=== PATIENT | female | born 1945 | race Caucasian/White ===

== ENCOUNTER 2017-03-25 11:20 | Outpatient (CLI) ==
[2015-06-06 17:48] VITALS: BMI 29.2
[2017-03-25 11:40] LABS: BASOPHILS # (AUTO) 0.1 K/uL (0-0.2); BASOPHILS % (AUTO) 0.6 % (0.0-3.0); EOSINOPHILS # (AUTO) 0.1 K/ul (0.0-0.7); EOSINOPHILS % (AUTO) 1.2 % (0.0-7.0); HEMATOCRIT 42.6 % (37.0-47.0); HEMOGLOBIN 14.2 g/dl (12.0-16.0); IMMATURE GRANULOCYTE % (AUTO) 0.2 % (0.0-5.0); LYMPHOCYTES # (AUTO) 2.2 K/uL (0.60-3.4); LYMPHOCYTES % (AUTO) 26.4 (10.0-50.0); MEAN CORPUSCULAR HEMOGLOBIN 28.9 pg (27.0-31.0); MEAN CORPUSCULAR HGB CONC 33.3 (31.8-35.4); MEAN CORPUSCULAR VOLUME 86.8 fl (81.0-99.0); MONOCYTES # (AUTO) 0.2 K/uL (0.4-2.0); MONOCYTES % (AUTO) 2.6 (0-10); NEUTROPHILS # (AUTO) 5.8 K/ul (2.0-6.9); PLATELET COUNT 235 10^3/uL (140-440); RED BLOOD COUNT 4.91 10^6/ul (4.20-5.40); WHITE BLOOD COUNT 8.44 K/ul (4.6-10.2)
[2017-03-25 12:00] LABS: ALBUMIN 4.4 g/dL (3.4-5.0); ALBUMIN/GLOBULIN RATIO 1.29; ANION GAP 14.7; BILIRUBIN,TOTAL 0.63 mg/dL (0.00-1.20); CHOL/HDL RATIO 3.5 (4.5-5.5); CREATININE 0.8 mg/dL (0.60-1.30); POTASSIUM 3.7 mmol/L (3.5-5.10); TOTAL PROTEIN 7.8 g/dL (5.8-8.1)
== END 2017-03-25 11:21 | disposition home or self-care (01) ==
LOC: LAB 11:20
PROVIDERS: ATTEND Psychiatry & Neurology Psychiatry
DX: F33.2 Major depressive disorder, recurrent severe without psychotic features (principal); F01.50 Vascular dementia, unspecified severity, without behavioral disturbance, psychotic disturbance, mood disturbance, and anxiety; Z79.899 Other long term (current) drug therapy
CPT/HCPCS: 36415; 80053; 80061; 85025; 90792

== ENCOUNTER → 2017-04-15 | Outpatient (RCR) ==
[2015-06-06 17:48] VITALS: BMI 29.2
== END ==
LOC: NEWBEG 03-25 08:58
PROVIDERS: ATTEND Psychiatry & Neurology Psychiatry
DX: F33.2 Major depressive disorder, recurrent severe without psychotic features (principal); F01.50 Vascular dementia, unspecified severity, without behavioral disturbance, psychotic disturbance, mood disturbance, and anxiety
CPT/HCPCS: 90792; 90853; 99214

== ENCOUNTER → 2017-05-16 | Outpatient (RCR) ==
[2015-06-06 17:48] VITALS: BMI 29.2
== END ==
LOC: NEWBEG 04-18 07:00
PROVIDERS: ATTEND Psychiatry & Neurology Psychiatry
DX: F33.2 Major depressive disorder, recurrent severe without psychotic features (principal); F01.50 Vascular dementia, unspecified severity, without behavioral disturbance, psychotic disturbance, mood disturbance, and anxiety; F60.7 Dependent personality disorder
CPT/HCPCS: 90853; 99214

== ENCOUNTER 2017-06-15 10:00 | Outpatient (RCR) ==
[2015-06-06 17:48] VITALS: BMI 29.2
== END 2017-06-16 ==
LOC: NEWBEG 10:00
PROVIDERS: ATTEND Psychiatry & Neurology Psychiatry
DX: F33.2 Major depressive disorder, recurrent severe without psychotic features (principal); F01.50 Vascular dementia, unspecified severity, without behavioral disturbance, psychotic disturbance, mood disturbance, and anxiety; F60.7 Dependent personality disorder
CPT/HCPCS: 90832; 90853; 99214

== ENCOUNTER 2017-06-17 09:09 | Outpatient (RCR) ==
[2015-06-06 17:48] VITALS: BMI 29.2
== END 2017-07-16 ==
LOC: NEWBEG 09:09
PROVIDERS: ATTEND Psychiatry & Neurology Psychiatry
DX: F33.2 Major depressive disorder, recurrent severe without psychotic features (principal); F01.50 Vascular dementia, unspecified severity, without behavioral disturbance, psychotic disturbance, mood disturbance, and anxiety; F60.7 Dependent personality disorder

== ENCOUNTER 2017-12-27 10:24 | Outpatient (CLI) ==
[2015-06-06 17:48] VITALS: BMI 29.2
--- NOTE | 2017-12-27 11:51 | US ---
EXAM: Thyroid ultrasound History: Hypothyroid Technique: Multiple sonographic images through the thyroid gland were obtained. Color duplex Dopple r was used to interrogate vascular flow. Findings: The right lobe of the thyroid measures 4.8 cm x 1.9 cm x 1.8 cm and demonstrates multiple nodules wit h the largest being complex measuring 1.8 cm. The thyroid isthmus measures 0.4 cm in thickness. The left lobe of the thyroid measures 3.5 cm x 1.7 cm x 1.8 cm demonstrates a 1.2 cm complex nodule. The thyroid gland is not hypervascular. The thyroid gland is diffusely heterogeneous. No extrathyro idal masses are identified. Impression: Heterogeneous thyroid gland with dominant nodules as detailed above.
--- NOTE | 2017-12-28 11:40 | MAMMO ---
EXAM: Bilateral digital screening mammogram (2-D and 3-D) History: Screening Comparison: Bilateral mammogram 02/05/2014 Findings: MLO and CC views of bilateral breasts demonstrate scattered fibroglandular breast parenchy ma. CAD was reviewed by the radiologist. Tomosynthesis was performed. There are no dominant masses , no suspicious microcalcifications and no architectural distortions. Impression: Stable negative mammogram. Recommend followup routine screening mammography in 1 year. BIRADS 1
== END 2017-12-27 10:25 | disposition home or self-care (01) ==
LOC: RAD 10:24
PROVIDERS: ATTEND Physician Assistant
DX: Z12.31 Encounter for screening mammogram for malignant neoplasm of breast (principal); E03.9 Hypothyroidism, unspecified
CPT/HCPCS: 77067

== ENCOUNTER 2018-05-02 10:03 | Outpatient (CLI) ==
[2015-06-06 17:48] VITALS: BMI 29.2
--- NOTE | 2018-05-02 11:26 | US ---
EXAM: Left lower extremity venous Doppler History: Left lower extremity pain. Technique: Multiple sonographic images through the left lower extremity were obtained. Color duplex Doppler was used to interrogate vascular flow. Findings: The left common femoral, greater saphenous, profunda, superficial femoral, popliteal, irish sneha, posterior tibial and anterior tibial veins demonstrate spontaneous flow with normal compression and normal augmentation. Impression: No sonographic evidence for deep venous thrombosis.
== END 2018-05-02 10:04 | disposition home or self-care (01) ==
LOC: RAD 10:03
PROVIDERS: ATTEND Physician Assistant
DX: M79.605 Pain in left leg (principal); M79.604 Pain in right leg

== ENCOUNTER 2018-08-21 11:31 | Emergency (ER) ==
[2018-08-21 11:40] VITALS: BP 112/77; TEMP 99.2; BMI 31.9
[2018-08-21] MEDS ORDERED: TORADOL IM STA (11:58)
--- NOTE | 2018-08-21 12:33 | DI ---
EXAM: LEFT RIBS HISTORY: Rib pain after fall FINDINGS: Left ribs three-view. No displaced rib fracture is identified. No bony destruction, pneum othorax or soft tissue finding. IMPRESSION: No displaced rib fracture seen.
--- NOTE | 2018-08-21 12:52 | ED.PDOC ---
General ED Provider: Dr. MAO GARCIA MD Chief Complaint: Chest Wall Injury/Pain Stated Complaint: fell Time Seen by Physician: 12:15 Mode of Arrival: Walk-In Information Source: Patient Exam Limitations: No limitations Primary Care Provider: LEONARD HILL Nursing and Triage Documentation Reviewed and Agree: Yes Does patient meet sepsis criteria?: No If yes, has appropriate treatment been initiated?: Yes System Inflammatory Response Syndrome: Not Applicable Sepsis Protocol: For patient's 13 years and over: Temp is 96.8 and below OR 101 and greater Pulse >90 BPM Resp >20/minute Acutely Altered Mental Status Are patient's symptoms suggestive of a new infection, such as: -Pneumonia -Skin, Soft Tissue -Endocarditis -UTI -Bone, Joint Infection -Implantable Device -Acute Abdominal Infection -Wound Infection -Meningitis -Blood Stream Catheter Infection -Unknown Trauma/Injury Complaint Exam - Truncal Trauma Complaint/Exam Location of Pain: Reports: Left, Chest Symptoms Are: Still present Onset of Pain: Reports: Post accident Initial Severity: Mild Current Severity: Mild Mechanism: Reports: Blunt trauma, Fall Aggravating: Reports: Movement Alleviating: Reports: Rest Related Surgical History: Reports: None Immobilization Removed Post Exam: No Vertebral Tenderness Present: No Vertebral Deformity Present: No Trachial Deviation Present: No JVD Present: No Crepitus Present: No Diminished Breath Sounds: No Muffled Heart Sounds Present: No Paradoxical Chest Wall Movement Present: No Abdominal Guarding Present: No Abdominal Rigidity Present: No Referred Shoulder Pain (Kehr's Sign) Present: No Skin Findings: Present: Normal findings Differential Diagnoses: Chest Wall Contusion Review of Systems - Review Of Systems Constitutional: Reports: No symptoms Eyes: Reports: No symptoms Ears, Nose, Mouth, Throat: Reports: No symptoms Respiratory: Reports: No symptoms Cardiac: Reports: No symptoms GI: Reports: No symptoms : Reports: No symptoms Musculoskeletal: Reports: Muscle pain Skin: Reports: No symptoms Neurological: Reports: No symptoms Endocrine: Reports: No symptoms Hematologic/Lymphatic: Reports: No symptoms All Other Systems: Reviewed and Negative Past Medical History - Past Medical History Previously Healthy: No Endocrine: Reports: None Cardiovascular: Reports: None Respiratory: Reports: COPD Hematological: Reports: None Gastrointestinal: Reports: Diverticulitis Genitourinary: Reports: None Neuro/Psych: Reports: None Musculoskeletal: Reports: Other (mild tender l lower rib) Cancer: Reports: None Last Menstrual Period: n/a - Surgical History General Surgical History: Reports: Unknown - Family History Family History: Reports: Unknown - Social History Smoking Status: Never smoker Hx Substance Use: No Alcohol Screening: None Physical Exam - Physical Exam Appearance: Well-appearing, No pain distress, Well-nourished, Thin Ill-appearing: None Pain Distress: Mild Eyes: SILVERIO, EOMI, Conjunctiva clear ENT: Ears normal, Nose normal, Oropharynx normal Respiratory: Airway patent, Breath sounds clear, Breath sounds equal, Respirations nonlabored Cardiovascular: RRR, Pulses normal, No rub, No murmur GI/: Soft, Nontender, No masses, Bowel sounds normal, No Organomegaly Musculoskeletal: Normal strength, ROM intact, No edema, No calf tenderness Skin: Warm, Dry, Normal color Neurological: Sensation intact, Motor intact, Reflexes intact, Cranial nerves intact, Alert, Oriented Psychiatric: Affect appropriate, Mood appropriate Critical Care Note - Critical Care Note Total Time (mins): 0 Course - Course Orders, Labs, Meds: Orders Category Date Time Status Ketorolac Tromethamine [Toradol] MEDS 08/21/18 11:58 Discontinued 60 mg IM ONCE STA RIBS, UNILATERAL LEFT Stat RADS 08/21/18 11:57 Completed Medications Discontinued Medications Generic Name Dose Route Start Last Admin Trade Name Freq PRN Reason Stop Dose Admin Ketorolac Tromethamine 60 mg 08/21/18 11:58 08/21/18 12:05 Toradol IM 08/21/18 11:59 60 mg ONCE STA Administration Vital Signs: Temp Pulse Resp BP Pulse Ox 08/21/18 11:36 99.2 F 92 H 20 112/77 94 L Departure - Departure Time of Disposition: 01:00 (Rib Xray neg) Disposition: HOME SELF-CARE Discharge Problem: Contusion, chest wall Instructions: Pulmonary Contusion (ED) Condition: Stable Pt referred to PMD for follow-up: Yes IPMP verified?: No Allergies/Adverse Reactions: Allergies No Known Allergies Allergy (Verified 08/21/18 11:41) Home Medications: Ambulatory Orders Alprazolam 1 mg PO BEDTIME 08/21/18 Chlorthalidone 25 mg PO DAILY 08/21/18 Donepezil HCl 10 mg PO DAILY 08/21/18 Levothyroxine Sodium 50 mcg PO DAILY 08/21/18 Quetiapine Fumarate 25 mg PO BEDTIME 08/21/18 Sertraline HCl 100 mg PO DAILY 08/21/18 Transfer Form Completed: No Disposition Discussed With: Patient
== END 2018-08-21 13:10 | disposition home or self-care (01) ==
LOC: ED 11:31
DX: S20.212A Contusion of left front wall of thorax, initial encounter (principal); W19.XXXA Unspecified fall, initial encounter
CPT/HCPCS: 96372; 99283

== ENCOUNTER 2019-02-09 14:44 | Outpatient (CLI) ==
[2019-02-09 15:13] VITALS: BMI 35.1
== END 2019-02-09 14:49 | disposition critical access hospital (66) ==
LOC: AMBL 14:44
PROVIDERS: ATTEND Emergency Medicine
DX: R41.82 Altered mental status, unspecified (principal)

== ENCOUNTER 2019-02-09 14:55 | Emergency (ER) ==
--- NOTE | 2019-02-09 15:11 | ED.PDOC ---
General ED Provider: Dr. GENNA SCHULZ Chief Complaint: Fall Stated Complaint: 73 y old female apparently ETOH intoxicated.Noticed by a neighbour who was mowing grass as she went down to the ground and appeared under influence.Initial neurological evaluation is negative.[place] Nexys cruteria for neck.=/spine injury are negative,Also patient moves her neck spontaneously without any impediment.No NV.Abdomen soft and pelvis nontender with full rom on al joints of lower and upper extremities,Her verbalization is now incoherent,Ouoils are equal equally PEERLA, Time Seen by Physician: 15:15 Mode of Arrival: Ambulance Information Source: EMT Exam Limitations: Intoxication Nursing and Triage Documentation Reviewed and Agree: Yes Does patient meet sepsis criteria?: No System Inflammatory Response Syndrome: Not Applicable Sepsis Protocol: For patient's 13 years and over: Temp is 96.8 and below OR 101 and greater Pulse >90 BPM Resp >20/minute Acutely Altered Mental Status Are patient's symptoms suggestive of a new infection, such as: -Pneumonia -Skin, Soft Tissue -Endocarditis -UTI -Bone, Joint Infection -Implantable Device -Acute Abdominal Infection -Wound Infection -Meningitis -Blood Stream Catheter Infection -Unknown Cardiovascular Complaint Exam - Hypertension Complaint/Exam Onset/Duration: today Symptoms Are: Still present Timing: Constant Reported B/P Prior to Arrival: 120/90 Aggravating: Reports: None Alleviating: Reports: None Associated Signs and Symptoms: Reports: Dizziness Related Surgical History: Reports: None Cardiac Risk Factors: Reports: None Recent Change in Medications: No A/V [place]: No Papilledema Present: No JVD Present: No Carotid Bruit Present: No Femoral Pulses Bounding: No Differential Diagnoses: Drug Ingestion, Drug Withdrawal, Endocrine Disorder, Migraine Quality Indicator For Non-Traumatic Chest Pain/Syncope: EKG Performed Review of Systems - Review Of Systems Constitutional: Reports: Other Eyes: Reports: No symptoms Ears, Nose, Mouth, Throat: Reports: No symptoms Respiratory: Reports: No symptoms Cardiac: Reports: No symptoms, Lightheadedness : Reports: Hematuria Musculoskeletal: Reports: No symptoms Skin: Reports: No symptoms Neurological: Reports: No symptoms Endocrine: Reports: No symptoms Hematologic/Lymphatic: Reports: Swollen glands All Other Systems: Reviewed and Negative Past Medical History - Past Medical History Previously Healthy: No Endocrine: Reports: None Cardiovascular: Reports: None Respiratory: Reports: COPD Hematological: Reports: None Gastrointestinal: Reports: Diverticulitis Genitourinary: Reports: None Neuro/Psych: Reports: None Musculoskeletal: Reports: Other (mild tender l lower rib) Cancer: Reports: None - Surgical History General Surgical History: Reports: Unknown - Family History Family History: Reports: Unknown - Social History Smoking Status: Never smoker Hx Substance Use: No Alcohol Screening: None Physical Exam - Physical Exam Appearance: Ill-appearing Ill-appearing: Mild Pain Distress: None Eyes: SILVERIO, EOMI, Conjunctiva clear ENT: Ears normal Respiratory: Airway patent Cardiovascular: RRR, Pulses normal GI/: Soft Musculoskeletal: Normal strength Skin: Warm Neurological: Sensation intact Psychiatric: Affect appropriate Critical Care Note - Critical Care Note Total Time (mins): 0 Course - Course Hematology/Chemistry: 02/09/19 15:24 02/09/19 18:35 Orders, Labs, Meds: Lab Review 02/09/19 02/09/19 02/09/19 15:24 15:24 15:34 WBC 6.77 RBC 4.54 Hgb 13.8 Hct 40.7 MCV 89.6 MCH 30.4 MCHC 33.9 RDW Coeff of Garrett 15.0 H Plt Count 192 Immature Gran % (Auto) 0.1 Neut % (Auto) 60.1 Lymph % (Auto) 31.0 [place] % (Auto) 6.2 Eos % (Auto) 1.9 Baso % (Auto) 0.7 Immature Gran # (Auto) 0.0 Neut # (Auto) 4.1 Lymph # (Auto) 2.1 [place] # (Auto) 0.4 Eos # (Auto) 0.1 Baso # (Auto) 0.1 Sodium 140.4 Potassium 2.60 L* Chloride 99.5 Carbon Dioxide 28.1 Anion Gap 15.40 BUN 17.1 H Creatinine 0.79 Estimated GFR (MDRD) 72.00 BUN/Creatinine Ratio 21.64 Glucose 110.4 H Calcium 9.20 Total Bilirubin 0.55 AST 52.3 H ALT 24.3 Alkaline Phosphatase 104.6 Total Protein 7.46 Albumin 4.77 Globulin 2.69 Albumin/Globulin Ratio 1.77 Urine Color Urine Clarity Urine pH Ur Specific [place] Urine Protein Urine Glucose (UA) Urine Ketones Urine Blood Urine Nitrite Urine Bilirubin Urine Urobilinogen Ur Leukocyte Esterase Urine Microscopic RBC Urine Microscopic WBC Ur Squamous Epith Cells Plasma/Serum Alcohol 245.3 H 02/09/19 02/09/19 02/09/19 17:07 18:04 18:35 WBC RBC Hgb Hct MCV MCH MCHC RDW Coeff of [place] Plt Count Immature Gran % (Auto) Neut % (Auto) Lymph % (Auto) [place] % (Auto) Eos % (Auto) Baso % (Auto) Immature Gran # (Auto) Neut # (Auto) Lymph # (Auto) [place] # (Auto) Eos # (Auto) Baso # (Auto) Sodium Potassium 2.91 L Chloride Carbon Dioxide Anion Gap BUN Creatinine Estimated GFR (MDRD) BUN/Creatinine Ratio Glucose Calcium Total Bilirubin AST ALT Alkaline Phosphatase Total Protein Albumin Globulin Albumin/Globulin Ratio Urine Color Yellow Urine Clarity Clear Urine pH 6.0 Ur Specific [place] <=1.005 Urine Protein Negative Urine Glucose (UA) Negative Urine Ketones Negative Urine Blood 1+ Urine Nitrite Negative Urine Bilirubin Negative Urine Urobilinogen 0.2 Ur Leukocyte Esterase Trace Urine Microscopic RBC 0-2 Urine Microscopic WBC 0-2 Ur Squamous Epith Cells 2-5 Plasma/Serum Alcohol 191.7 H Orders Category Date Time Status EKG-(ED ONLY) Stat CARDIO 02/09/19 15:18 Completed IV [ED IV/MEDIPORT/POWERPORT] .ONCE EMERGENCY 02/09/19 15:13 Active BLOOD ALCOHOL Stat LAB 02/09/19 15:34 Completed CBC W/ AUTO DIFF Stat LAB 02/09/19 15:24 Completed COMPREHENSIVE METABOLIC PANEL Stat LAB 02/09/19 15:24 Completed ETOH LEVEL [BLOOD ALCOHOL] Stat LAB 02/09/19 17:07 Completed POTASSIUM Stat LAB 02/09/19 18:35 Completed URINALYSIS C & S IF INDICATED Stat LAB 02/09/19 18:04 Completed 0.9 % Sodium Chloride [Saline Flush] MEDS 02/09/19 15:13 Active 1 syr IVF PRN PRN Potassium Chloride in 0.9%NaCl [Sodium Chloride 0.9%- MEDS 02/09/19 15:59 Discontinued KCl 20 Meq] 1,000 ml IV BOLUS Sodium Chloride 0.9% [Sodium Chloride] 1,000 ml MEDS 02/09/19 18:26 Active Potassium Chloride Additive [Potassium Chloride 10 Meq Vial] 10 meq IV 100.5 mls/hr Sodium Chloride 0.9% [Sodium Chloride] 1,000 ml MEDS 02/09/19 15:14 Discontinued IV BOLUS Medications Generic Name Dose Route Start Last Admin Trade Name Curry PRN Reason Stop Dose Admin Potassium Chloride 10 meq/ 1,005 mls @ 100.5 mls/hr 02/09/19 18:26 Sodium Chloride IV 02/10/19 04:25 .Q10H STA Sodium Chloride 1 syr 02/09/19 15:13 Saline Flush IVF PRN PRN To flush IV Discontinued Medications Generic Name Dose Route Start Last Admin Trade Name Freq PRN Reason Stop Dose Admin Sodium Chloride 1,000 mls @ 1,000 mls/hr 02/09/19 15:14 Sodium Chloride IV 02/09/19 16:13 BOLUS STA Potassium Chloride/Sodium Chloride 1,000 mls @ 500 mls/hr 02/09/19 15:59 16:02 Sodium Chloride 0.9%-Kcl 20 Meq IV 02/09/19 17:58 500 mls/hr BOLUS STA Administration Vital Signs: Temp Pulse Resp BP Pulse Ox 02/09/19 14:57 97.6 F 98 H 20 117/91 H 95 GRANT Risk Score GRANT Risk Score: Risk Score Odds of by 30D 0 0.1 (0.1-0.2) 1 0.3 (0.2-0.3) 2 0.4 (0.3-0.5) 3 0.7 (0.6-0.9) 4 1.2 (1.0-1.5) 5 2.2 (1.9-2.6) 6 3.0 (2.5-3.6) 7 4.8 (3.8-6.1) Departure - Departure Time of Disposition: 19:18 Disposition: HOME SELF-CARE Discharge Problem: Dehydration Instructions: Dehydration (ED) Condition: Good Pt referred to PMD for follow-up: Yes (f/u K levels and take K diet) IPMP verified?: No Allergies/Adverse Reactions: Allergies No Known Allergies Allergy (Verified 08/21/18 11:41) Home Medications: Ambulatory Orders Alprazolam 1 mg PO BEDTIME 08/21/18 Chlorthalidone 25 mg PO DAILY 08/21/18 Donepezil HCl 10 mg PO DAILY 08/21/18 Levothyroxine Sodium 50 mcg PO DAILY 08/21/18 Quetiapine Fumarate 25 mg PO BEDTIME 08/21/18 Sertraline HCl 100 mg PO DAILY 08/21/18 Disposition Discussed With: Patient
[2019-02-09 15:13] VITALS: BP 117/91; TEMP 97.6; BMI 35.1
[2019-02-09] MEDS ORDERED: SODIUM CHLORIDE 1,000 ML IV STA (15:14)
[2019-02-09] MEDS ORDERED: SODIUM CHLORIDE 0.9%-KCL 20 MEQ 1,000 ML IV STA (15:59)
[2019-02-09] MEDS ORDERED: POTASSIUM CHLORIDE 10 MEQ VIAL 10 MEQ in SODIUM CHLORIDE 1,000 ML IV STA (18:26)
[2019-02-09] MEDS ORDERED: K-DUR PO STA (19:17)
== END 2019-02-09 20:11 | disposition home or self-care (01) ==
LOC: ED 14:55
DX: F10.129 Alcohol abuse with intoxication, unspecified (principal); E86.0 Dehydration; R42 Dizziness and giddiness; W19.XXXA Unspecified fall, initial encounter
CPT/HCPCS: 36415; 80053; 80307; 81001; 84132; 85025; 93005; 93010; 96360; 96361; 99283